=== PATIENT | male | born 1955 | race Caucasian/White ===

== ENCOUNTER 2023-11-09 09:07 | Inpatient (IN) | payer OTHER, SELFPAY ==
[2023-11-09] VITALS (22 sets, daily range): BP systolic 82–146; BP diastolic 62–88; BMI 26.9; BMI 27.5
[2023-11-09 05:15] LABS: % Basophils 0.2 % (0-2); % Eosinophils 0.4 % (0-6); % Immature Granulocytes 0.4 % (0-0.5); % Lymphocytes 5.5 % (20.5-51.1); % Monocytes 1.6 % (1.7-9.3); % Neutrophils 91.9 % (42.2-75.2); Absolute Eosinophils 0.1 10^3/uL (0-0.7); Absolute Immature Granulocytes 0.1 10^3/uL (0-0.05); Absolute Lymphocytes 0.7 10^3/uL (1.2-3.4); Absolute Monocytes 0.2 10^3/uL (0.1-0.6); Absolute Neutrophils 12.3 10^3/uL (1.4-6.5); Hematocrit 37.5 % (39.0-52.0); Hemoglobin 13.3 g/dL (13.0-18.0); Mean Corp Hgb Conc. 35.5 g/dL (33.0-37.0); Mean Corpuscular Hgb 32.5 pg (27.0-31.0); Mean Corpuscular Volume 91.7 fL (80.0-94.0); Mean Platelet Volume 8.7 fL (7.4-10.4); Nucleated Red Blood Cells % 0 % (-); Platelet Count 219 10^3/uL (130-400); Red Blood Cell Count 4.09 10^6/uL (4.70-6.10); Red Cell Dist. Width 13.4 % (11.5-14.5); White Blood Cell Count 13.4 10^3/uL (4.8-10.8)
[2023-11-09] MEDS: TYLENOL 1000 MG PO (05:17)
[2023-11-09] MEDS: ZOFRAN 4 MG IV (05:18)
[2023-11-09] MEDS: NSS 1000 IV ×2 (05:18→12:34)
[2023-11-09 05:33] LABS: COVID-19 Antigen Negative (Negative)
[2023-11-09 05:37] LABS: Lactic Acid 2.7 mmol/L (0.7-2.0)
[2023-11-09 05:48] LABS: Blood Urea Nitrogen 18 mg/dl (9-20); Calcium 9.7 mg/dl (8.4-10.2); Carbon Dioxide 24 mmol/L (22-30); Chloride 105 mmol/L (98-107); Estimated Creatinine Clearance 100 ml/min; Glucose 123 mg/dl (70-99); Sodium 140 mmol/L (135-145); eGFR > 60.00
--- NOTE | 2023-11-09 06:10 | EDRN ---
Dr. Cat at bedside going over results and plan for admission
--- NOTE | 2023-11-09 06:31 | ED.GENMED ---
History of Present Illness
General
Chief Complaint: Abdominal Symptoms
Source: patient and ambulance crew
Exam Limitations: none
Time Seen by Provider: 11/09/23 06:04
Nursing documentation reviewed up to this point in time: agreed with
Travel History
Have you had any contact with someone who has COVID-19?: No
Do you have any symptoms of coronavirus? Fever > 100 degrees, chills, cough, shortness of breath, sore throat, loss of taste or smell, muscle aches, or headache?: Yes
Symptoms:: fever
History of Present Illness
History of Present Illness:
68-year-old male with a past medical history of asthma/COPD, smoker, hypertension, chronic back pain who presents to the emergency department for evaluation of fever and chills. Patient reports that he is currently visiting from his home in [place]
to see his children who live in [place]. He says that this morning he woke up with shaking chills and high fever. He says that he had an upset stomach and had 1 episode of vomiting. He says that he noticed he was having some aching pain in the
right side of his chest. Called EMS to bring him to the hospital to be evaluated. He says he no longer feels nauseated. He received some Toradol on the way to the hospital for pain which improved his chest pain. He has not noticed any recent
diarrhea. Denies any abdominal pain. Denies any recent URI type symptoms. He has a chronic cough he has not noticed it any worse than usual. He says he has chronic shortness of breath again no worse than usual. He denies any other complaints.
He says he was in his normal state of health over the past few days prior to waking up ill this morning.
Past History
Past History
ED Past Medical History: None
ED Past Surgical History: None
Social History
Tobacco: Non-smoker
Personal:
Living: with family
Review of Systems
Review of Systems
All Other Systems: ROS reviewed and negative except as documented in HPI and ROS
Constitutional: Reports fever and chills
Respiratory: Reports cough (Chronic) and trouble breathing (Chronic)
Cardiac: Reports chest pain; Denies diaphoresis or palpitations
ABD/GI: Reports nausea and vomiting (X 1); Denies abdominal pain or diarrhea
: Denies dysuria, frequency or flank pain
Musculoskeletal: Reports back pain (Chronic); Denies neck pain
Neurological: Denies dizzy, headache, weakness or numbness
Phy Exam
Physical Exam
Physical Exam:
Vitals: Marginally hypertensive, tachycardic, tachypneic, febrile, pulse ox 89% on room air
General: Awake, alert, oriented x3; no acute distress
Head: Normocephalic, atraumatic
Eyes: Conjunctiva normal, pupils equal round and reactive to light bilaterally
Throat: Airway intact, handling secretions, mucous membranes moist
Neck: Trachea midline, supple without meningismus
Lungs: Somewhat diminished at the lung bases but no focal wheezing or rales appreciated; pulse ox 89% on room air
Heart: Tachycardia with regular rhythm, no murmurs, gallops, or rubs
Abd: Soft, non distended, nontender
Neuro: No gross deficits
Skin: no rash
Extremities: No edema in extremities, equal pulses in all extremities
Scores
Heart Failure Risk
Heart Failure Risk Score: Not Applicable
Heart Score for Chest Pain Patients
STEMI patient?: Not applicable
Withdrawal Assessment of Alcohol
Withdrawal Assessment Completed?: Not applicable
Course
Orders/Labs/Results
Orders:
Orders
11/09/23 04:59
Electrocardiogram (*1) Urgent
Reason for Study: Other
Other Reason for Exam: Possible Sepsis
Cardiac Monitoring- Treatment ONCE
IV Insert/Care/Rem.- Treatment PRN
CR Chest - 2 Views Urgent
Comment:
Reason For Exam: suspected infection
O2 Therapy [RESP] Urgent
Titrate/Wean O2 to maintain O2 sat greater than (%): 93
Special Instructions: TO MAINTAIN CONTINUOUS O2 SATS > OR = 93%
Pulse Ox/cont/shift [RESP] Urgent
Quantity: 1
Special Instructions: CONTINUOUS
11/09/23 05:01
Acetaminophen [Tylenol] 1,000 mg .ROUTE .STK-MED ONE
Ondansetron Injectable [Zofran] 4 mg .ROUTE .STK-MED ONE
11/09/23 05:04
COVID-19 Antigen Urgent
Source: Nasal Swab
Lactic Acid Q4H
Comment: ON ICE, CANCEL 2ND ORDER IF FIRST LACTIC ACID LEVEL <2
Influenza A+B Rapid Molecular Urgent
MALINDA Source: Nasal Swab
Specimen Description:
11/09/23 05:05
Basic Metabolic Panel Urgent
Complete Blood Count/With Diff Urgent
Blood Culture Q30M
MALINDA Source: Blood/Venous
Specimen Description:
Comment: FROM 2 SEPARATE SITES
Blood Culture Q30M
MALINDA Source: Blood/Venous
Specimen Description:
Comment: FROM 2 SEPARATE SITES
11/09/23 05:16
Acetaminophen [Tylenol] 1,000 mg PO NOW STA
11/09/23 05:17
0.9% Sodium Chloride 1000 ml [Nss] 1,000 ml IV BOLUS
11/09/23 05:18
Ondansetron Injectable [Zofran] 4 mg IV NOW STA
11/09/23 06:08
CefTRIAXone [Rocephin] 1,000 mg IV NOW STA
Doxycycline Hyclate [Vibramycin] 100 mg 0.9% Sodium Chloride 250 ml [Nss] 250 ml IV NOW
11/09/23 09:00
Lactic Acid Q4H
Comment: ON ICE, CANCEL 2ND ORDER IF FIRST LACTIC ACID LEVEL <2
Abnormal Lab Results
11/09/23 11/09/23
05:04 05:05
WBC 13.4 H 10^3/uL
(4.8-10.8)
RBC 4.09 L 10^6/uL
(4.70-6.10)
Hct 37.5 L %
(39.0-52.0)
MCH 32.5 H pg
(27.0-31.0)
Abs Immat Gran (auto) 0.1 H 10^3/uL
(0-0.05)
Absolute Neuts (auto) 12.3 H 10^3/uL
(1.4-6.5)
Absolute Lymphs (auto) 0.7 L 10^3/uL
(1.2-3.4)
Neutrophils % 91.9 H %
(42.2-75.2)
Lymphocytes % 5.5 L %
(20.5-51.1)
Monocytes % 1.6 L %
(1.7-9.3)
Glucose 123 H mg/dl
(70-99)
Lactic Acid 2.7 H mmol/L
(0.7-2.0)
11/09/23 05:05
11/09/23 05:05
Vital Signs
Initial and Last Documented VS:
Initial Vital Signs
Temp Pulse Resp BP Pulse Ox
39.2 C H 123 20 146/79 94
11/09/23 05:01 11/09/23 05:01 11/09/23 05:01 11/09/23 05:01 11/09/23 05:01
Last Documented Vital Signs
Temp Pulse Resp BP Pulse Ox
39.2 C H 123 20 146/79 94
11/09/23 05:01 11/09/23 05:01 11/09/23 05:01 11/09/23 05:01 11/09/23 05:01
MDM/Problems Addressed
Differential Diagnosis Includes:
Pneumonia, UTI, cholecystitis/intra-abdominal infection
MDM/Problems Addressed:
68-year-old male presents for evaluation of fever and chills, 1 episode of vomiting and some right sided chest discomfort that woke him up this morning. Feeling a bit better now but still has chills. Arrives to us tachycardic, tachypneic, febrile,
hypoxic. Placed on 2 L of oxygen with improvement in oxygenation. Placed on IV send labs including CBC CMP, lactate, blood cultures, viral swabs. Check chest x-ray and EKG. Send troponin given chest pain. Will treat with Tylenol, fluids.
Reassess after the above.
Labs reviewed: CBC shows leukocytosis to 13.4. CMP no clinically significant abnormalities. Lactate marginally elevated 2.7. Viral swabs negative. Chest x-ray reviewed by me shows right lower lobe pneumonia. Patient with multiple SIRS criteria
and requiring 2 L nasal cannula to maintain oxygen saturations; we will plan to treat with antibiotics for community-acquired pneumonia admit for continued management. Case discussed with hospitalist for admission.
Chronic conditions affecting care:
Smoker, COPD/asthma
*Radiology
Radiology exam reviewed: preliminary read by ED provider (Pneumonia)
*Pulse Oximetry
Patient hypoxic: yes
*EKG
Interpreted by ED Provider?: Yes
Heart Rate: 112
Rate: tachycardiac
Rhythm: sinus tachycardia
[place]: normal axis
Interval: normal interval
QRS Pattern: normal QRS
Ischemia: no ischemia
*Critical Care Note
Total Time (30-74mins, 75-104mins- exclusive of procedures): Not Applicable
Data Reviewed
Source: patient, records and ambulance crew
Patient Management
Discussion with other providers: Hospitalist (Discussed with hospitalist)
Escalation/DeEscalation of care consider admission/obs:
Admission indicated
ED Attending Note
-
Portions of this chart may have been created with voice recognition software.� Occasional wrong word or��sound alike� substitutions may have occurred due to the inherent limitations of voice recognition software.
Discharge Plan
Departure
Patient Disposition: Admit
Date of Disposition: 11/09/23
Time of Disposition: 06:37
Presentation/result/management discussed w/ accepting MD/DO: Hospitalist
Discharge Problem:
Pneumonia
Prescriptions:
No Action
lisinopril 20 mg Tablet
20 mg PO DAILY
bupropion HCl [Wellbutrin] 75 mg Tablet
75 mg PO DAILY
Referrals:
PRIVATE,PHYSICIAN [Family Provider] -
Interventions
Interventions:
*Risk Screen - Suicide Last Done: 11/09/23 05:01
*General Assessment Last Done: 11/09/23 05:01
*Neglect/Abuse Screening Last Done: 11/09/23 05:01
ED- Fall Risk Assessment Last Done: 11/09/23 05:38
*ED COVID-19 Vaccine History Last Done: 11/09/23 05:01
IM-Mfxjjy-Qjrxfpqvoa Assessment Last Done: 11/09/23 05:38
Discharge Date and Time
Print Language: CAMEROONIAN
[2023-11-09] MEDS: ROCEPHIN 1000 MG IV (06:55)
--- NOTE | 2023-11-09 07:00 | EDRN ---
Patient provided with a glass of water, call [facility]eles in reach.
[2023-11-09] MEDS: VIBRAMYCIN 260 MG IV ×2 (07:14→21:11)
[2023-11-09 08:04] LABS: Troponin I < 0.012 ng/ml
--- NOTE | 2023-11-09 08:23 | PHANOTE ---
Med Rec note- [place] go over his medication, patient has loose tables/capsules and a weekly pill financial planner. id drugs except no tablets in [place] with patient, and a tablet blue with making 100 on them. will call pharmacy at
0900
[2023-11-09] MEDS: NSS 500 IV ×3 (08:34→12:29)
[2023-11-09 09:15] LABS: Lactic Acid 1.6 mmol/L (0.7-2.0)
--- NOTE | 2023-11-09 09:15 | HPS.HSE ---
Family Physician
-
Family Physician: PHYSICIAN PRIVATE
Chief Complaint
-
fever/chills
History of Present Illness
HPI: 68-year-old male with past medical history of asthma/COPD, smoker, hypertension, chronic back pain; who p/w fever and chills. Patient is visiting from [place] to see his children who lives in [place]. He woke up with shaking chills and high
fever. He endorsed to R sided chest pain.
Called EMS to bring him to the hospital to be evaluated. He received Toradol on the way to the hospital for pain which improved his chest pain. His nausea resolved.
He denies to worsening chronic cough. He has chronic shortness of breath that he does not feel is worse than baseline.
He denies to any other complaints.
Medical History
Past Medical History
Past Medical History: Reports Other
Additional Past Medical History:
asthma/COPD
hypertension
chronic back pain
Past Surgical History: Reports Cholecystectomy and Other
Additional Past Surgical History:
back surgery x2
stomach hernia repair
Social History
Tobacco: Former Smoker (quit 2 months [employer] )
Alcohol: Occasional
Personal:
Living: With Family
Family History
Family History: Not pertinent
Allergies / Home Medications
Allergies reflects when Allergies were last updated in [facility].
Home Medications with original date entered in [facility]
Allergy/Medication List:
Allergies
Allergy/AdvReac Type Severity Reaction Status Date / Time
No Known Allergies Allergy Verified 11/09/23 05:13
Home Medications
Cipla 200 mg PO DAILY 11/09/23
bupropion HCl 150 mg tablet,12 hr sustained-release (Wellbutrin SR) 150 mg PO DAILY 11/09/23
carboxymethylcellulose 0.5 %-glycerin 0.9 % eye drops (Refresh Optive) 1 drp BOTH EYES DAILYPRN PRN mild pain 11/09/23
duloxetine 40 mg capsule,delayed release sprinkle 40 mg PO DAILYPRN PRN mild pain 11/09/23
lisinopril 10 mg tablet 20 mg PO DAILY 11/09/23
omeprazole 40 mg capsule,delayed release 40 mg PO DAILYPRN PRN gerd 11/09/23
Review of Systems
-
Respiratory: Reports See HPI, Cough (chronic) and Trouble Breathing (chronic)
Physical Exam
Vital Signs
Vital Signs
Temp Pulse Resp BP Pulse Ox
37.7 C 99 21 96/69 92
11/09/23 08:26 11/09/23 08:15 11/09/23 08:15 11/09/23 08:01 11/09/23 08:15
Physical Exam
General: Well Developed, Well Nourished, Comfortable, Conversant, Respiratory Distress and Appears Chronically Ill
HEENT: NormoCephalic, Moist mucous membranes, Atraumatic and Oxygen (3L NC)
Respiratory: Clear, Crackles (R base) and Non Labored Respirations; No Accessory Resp Muscle Use
Cardiac: S1/S2 and Regular Rhythm; No Murmur or Rub
GI: Soft, Non Tender, Non Distended and Normal Bowel Sounds; No Organomegaly
Rectal: Deferred by Provider
Musculoskeletal: No Clubbing, No Cyanosis and No Edema
Skin: No Rash
Neuro: Awake, Alert and Nonfocal/grossly intact
Psych: Calm and Intact Judgment/Insight
Laboratory Results
-
11/09/23 05:05
11/09/23 05:05
Laboratory Results
Lactic Acid 2.7 mmol/L (0.7-2.0) H 11/09/23 05:04
Total Bilirubin Cancelled 11/09/23 05:05
AST Cancelled 11/09/23 05:05
ALT Cancelled 11/09/23 05:05
Alkaline Phosphatase Cancelled 11/09/23 05:05
Troponin I < 0.012 ng/ml 11/09/23 05:15
Data Reviewed
-
Diagnostic Radiology: Image Personally Visualized and interpreted and Report Reviewed by me
Lab Data: Labs Reviewed by me
Impression/Plan
-
HPI: 68-year-old male with past medical history of asthma/COPD, hypertension, chronic back pain; who p/w fever and chills. Patient is visiting from [place] to see his children who lives in [place]. He woke up with shaking chills and high fever. He
endorsed to R sided chest pain.
Called EMS to bring him to the hospital to be evaluated. He received Toradol on the way to the hospital for pain which improved his chest pain. His nausea resolved.
He denies to worsening chronic cough. He has chronic shortness of breath that he does not feel is worse than baseline.
He denies to any other complaints.
CXR:
1. Airspace consolidation within the right middle lobe and right upper lobe, most suggestive of multifocal pneumonia.
2. No parapneumonic effusion.
A/P:
# Sepsis POA due to R sided CAP
# Acute hypoxic resp insufficiency
Placed on 3L NC, cont and wean as tolerated (pt not on home O2)
s/p IVF bolus 1500 ml in ED which improved BP, will order additional 1L bolus
Flu and COVID negative
Follow blood Cx, check MRSA screen, sputum Cx, urine Legionella/Strep Ag
Cont ceftriaxone and doxycycline
Mucinex
Duonebs Q6H ATC for now
Tylenol PRN for fever
# asthma/COPD
# ex-smoker
quit 2 month [employer], was smoking 1 PPD for several years
# hypertension
cont [employer] Lisinopril with hold parameter
# chronic back pain
DVT ppx: Lovenox SQ
FC
[2023-11-09] MEDS: PERCOCET 5/325 1 TABLET PO ×2 (09:57→16:51)
--- NOTE | 2023-11-09 14:30 | PTCARENOTE ---
Patient received from ER. Patient was able to stand and pivot to bed. AAO, VSS. 500mL NSS bolus finishing and then NSS @ 100mL/hr through IV. On 3L N/C, will attempt to wean as patient is normally on Room Air. Small abrasions on left lower leg,
cleaned, assessed and dressed with foams. Oriented to room. Call angeles in reach.
[2023-11-09] MEDS: DUONEB INH (15:03)
[2023-11-09] MEDS: DUONEB 3 ML INH ×2 (16:18→19:46)
[2023-11-09] MEDS: LOVENOX 40 MG SC (18:06)
[2023-11-09] MEDS: MUCINEX 1200 MG PO (20:03)
[2023-11-09] MEDS: TORADOL 15 MG IV (20:03)
--- NOTE | 2023-11-09 21:39 | PTCARENOTE ---
Received pt at change of shift. Pt was visibly in pain even after receiving Percocet at 16:51. Notified [employer]ANE OPERATOR. Toradol was ordered 1x dose and administered. Pt states he feels much better after getting the medication and appears to be more
relaxed. Pt resting in bed with call angeles in reach.
[2023-11-10] VITALS (10 sets, daily range): BP systolic 121–173; BP diastolic 65–95; PULSE 85–89; O2SAT 92–93; BMI 28.0
[2023-11-10] MEDS: NSS 1000 IV (00:35)
[2023-11-10] MEDS: PERCOCET 5/325 1 TABLET PO ×4 (02:17→20:16)
[2023-11-10 05:16] LABS: % Basophils 0.1 % (0-2); % Eosinophils 0.8 % (0-6); % Immature Granulocytes 0.4 % (0-0.5); % Lymphocytes 9.4 % (20.5-51.1); % Monocytes 3.9 % (1.7-9.3); % Neutrophils 85.4 % (42.2-75.2); Absolute Eosinophils 0.1 10^3/uL (0-0.7); Absolute Immature Granulocytes 0.1 10^3/uL (0-0.05); Absolute Lymphocytes 1.3 10^3/uL (1.2-3.4); Absolute Monocytes 0.5 10^3/uL (0.1-0.6); Absolute Neutrophils 11.7 10^3/uL (1.4-6.5); Hematocrit 29.1 % (39.0-52.0); Hemoglobin 9.5 g/dL (13.0-18.0); Mean Corp Hgb Conc. 32.6 g/dL (33.0-37.0); Mean Corpuscular Hgb 32.1 pg (27.0-31.0); Mean Corpuscular Volume 98.3 fL (80.0-94.0); Mean Platelet Volume 9.2 fL (7.4-10.4); Nucleated Red Blood Cells % 0 % (-); Platelet Count 156 10^3/uL (130-400); Red Blood Cell Count 2.96 10^6/uL (4.70-6.10); Red Cell Dist. Width 13.9 % (11.5-14.5); White Blood Cell Count 13.7 10^3/uL (4.8-10.8)
[2023-11-10] MEDS: STERILE WATER FOR INJECTION 10 ML IV (05:40)
[2023-11-10] MEDS: ROCEPHIN 1000 MG IV (05:40)
[2023-11-10 06:18] LABS: Blood Urea Nitrogen 19 mg/dl (9-20); Carbon Dioxide 25 mmol/L (22-30); Chloride 110 mmol/L (98-107); Estimated Creatinine Clearance 110 ml/min; Glucose 82 mg/dl (70-99); Potassium 3.7 mmol/L (3.5-5.1); Sodium 138 mmol/L (135-145); eGFR > 60.00
[2023-11-10] MEDS: WELLBUTRIN SR (12 hour sustained release) 150 MG PO (07:14)
[2023-11-10] MEDS: ZESTRIL 20 MG PO (07:14)
[2023-11-10] MEDS: MUCINEX 1200 MG PO ×2 (07:14→20:07)
[2023-11-10] MEDS: VIBRAMYCIN 260 MG IV ×2 (07:16→20:12)
[2023-11-10] MEDS: DUONEB 3 ML INH ×4 (07:50→20:14)
--- NOTE | 2023-11-10 08:14 | W.PN.HOSP.TC ---
Today's Communication/Plan
-
see A/P
Assessment / Plan
Assessment / Plan
HPI: 68-year-old male with past medical history of asthma/COPD, hypertension, chronic back pain; who p/w fever and chills. Patient is visiting from [place] to see his children who lives in [place]. He woke up with shaking chills and high fever. He
endorsed to R sided chest pain.
Called EMS to bring him to the hospital to be evaluated. He received Toradol on the way to the hospital for pain which improved his chest pain. His nausea resolved.
He denies to worsening chronic cough. He has chronic shortness of breath that he does not feel is worse than baseline.
He denies to any other complaints.
CXR:
1. Airspace consolidation within the right middle lobe and right upper lobe, most suggestive of multifocal pneumonia.
2. No parapneumonic effusion.
A/P:
# Sepsis POA due to R sided CAP
# Acute hypoxic resp insufficiency
Placed on 3L NC, wean O2 as tolerated (pt not on home O2)
s/p IVF bolus then maintenance IVF, with improved BP, DC further IVF
Flu and COVID negative, blood Cx so far neg, urine Legionella/Strep Ag neg,
check MRSA screen, sputum Cx
Cont ceftriaxone and doxycycline
Cont Mucinex and Duonebs Q6H ATC for now
Tylenol PRN for fever
Recc repeat CXR in 4-6 weeks with PCP
# asthma/COPD
# ex-smoker
quit 2 month [employer], was smoking 1 PPD for several years
# hypertension
cont [employer] Lisinopril with hold parameter
# chronic back pain
cont [employer] Percocet
PT OT eval
DVT ppx: Lovenox SQ
FC
Anticipated Discharge: 24 - 48 hours
Subjective/Interval History
-
Date of Service: November 10, 2023
Objective Data
-
Labs:
Laboratory Results
11/10/23
05:05
WBC 13.7 H
Hgb 9.5 L D
Hct 29.1 L
Plt Count 156 D
Sodium 138
Potassium 3.7
Chloride 110 H
Carbon Dioxide 25
BUN 19
Creatinine 0.8
Glucose 82
Calcium 8.0 L D
Vital Signs:
Vital Signs
Temp Pulse Resp BP Pulse Ox
36.6 C 79 18 135/87 97
11/10/23 04:05 11/10/23 07:51 11/10/23 07:51 11/10/23 06:00 11/09/23 20:00
I&O
11/09/23 11/10/23 11/11/23
06:59 06:59 06:59
Intake Total 2240 / 2240
Output Total 2175 / 2175
Balance 65 / 65
Review of Systems
-
All other systems: Reviewed and negative
Physical Exam
-
General: Well Developed, Well Nourished, Comfortable and Conversant
HEENT: Normocephalic, Atraumatic, Nose Appears Normal and Ears Appear Normal
Respiratory: Clear to Auscultation and Non Labored Respirations; Negative Accessory Resp Muscle Use
Cardiac: Regular Rhythm and S1/S2
GI: Soft, Nontender, Nondistended and Normal Bowel Sounds
Skin: Warm and Dry
Neuro: Awake, Alert, Oriented and AO x 3
Psych: Calm and Intact Judgement/Insight
Data Reviewed
-
Diagnostic Radiology: Image personally visualized and interpreted and Report Reviewed by me
Labs: Labs Reviewed by me
--- NOTE | 2023-11-10 09:29 | TRANSFER ---
Report given transfer to 412/1
--- NOTE | 2023-11-10 10:30 | PTCARENOTE ---
Received patient from IMU via wheelchair. AAOx3, ambulated to bed. Assessed and oriented to room. Call angeles in close reach.
[2023-11-10] MEDS: TORADOL 15 MG IV (10:45)
[2023-11-10] MEDS: LYRICA 200 MG PO ×2 (11:23→20:07)
[2023-11-10] MEDS: TYLENOL 650 MG PO (13:23)
--- NOTE | 2023-11-10 15:58 | CM ---
Patient seen at bedside. Patient confirmed that he lives with his in a 2 story home. Patient has a first floor set up and his daughter a nurse lives in the same community. Patient has no DME at home. Patient PCP is Dr. Medrano and he uses the
[facility] pharmacy [facility] in [place]. Patient was here to visit his family when he became ill and came to visit . Patient plan is for discharge home with no needs. Patient has no home O2 and currently is not using O2. Patient is
anticipating discharge home tomorrow. CM will continue to follow for discharge planning needs.
Plan; home with no needs; watch for pharmacy in area for any updated medication changes.
[2023-11-10] MEDS: LOVENOX 40 MG SC (17:41)
--- NOTE | 2023-11-11 03:06 | DOWNTIME ---
There was a [employer] Downtime on 10/14/2023 from 0100 to 10/14/2023 at 0439. Downtime documentation of patient's care, including medication administrations, has been reconciled in the electronic record per guidelines. Refer to the
patient's paper chart under the miscellaneous tab to see printed paper medication records and downtime forms.
[2023-11-11] MEDS: STERILE WATER FOR INJECTION 10 ML IV (05:29)
[2023-11-11] MEDS: ROCEPHIN 1000 MG IV (05:30)
[2023-11-11] MEDS: TYLENOL 650 MG PO (05:39)
[2023-11-11 05:50] VITALS: BP 146/88
[2023-11-11 06:13] LABS: % Basophils 0.2 % (0-2); % Eosinophils 1.1 % (0-6); % Immature Granulocytes 0.5 % (0-0.5); % Lymphocytes 8.9 % (20.5-51.1); % Monocytes 5.5 % (1.7-9.3); % Neutrophils 83.8 % (42.2-75.2); Absolute Eosinophils 0.1 10^3/uL (0-0.7); Absolute Immature Granulocytes 0.1 10^3/uL (0-0.05); Absolute Monocytes 0.6 10^3/uL (0.1-0.6); Absolute Neutrophils 9.7 10^3/uL (1.4-6.5); Hematocrit 33.5 % (39.0-52.0); Hemoglobin 11.6 g/dL (13.0-18.0); Mean Corp Hgb Conc. 34.6 g/dL (33.0-37.0); Mean Corpuscular Hgb 32.5 pg (27.0-31.0); Mean Corpuscular Volume 93.8 fL (80.0-94.0); Mean Platelet Volume 9.6 fL (7.4-10.4); Nucleated Red Blood Cells % 0 % (-); Platelet Count 177 10^3/uL (130-400); Red Blood Cell Count 3.57 10^6/uL (4.70-6.10); Red Cell Dist. Width 13.2 % (11.5-14.5); White Blood Cell Count 11.6 10^3/uL (4.8-10.8)
[2023-11-11 06:41] LABS: Blood Urea Nitrogen 12 mg/dl (9-20); Carbon Dioxide 27 mmol/L (22-30); Chloride 100 mmol/L (98-107); Estimated Creatinine Clearance 110 ml/min; Glucose 94 mg/dl (70-99); Sodium 135 mmol/L (135-145); eGFR > 60.00
[2023-11-11] MEDS: VIBRAMYCIN 260 MG IV (07:56)
[2023-11-11] MEDS: MUCINEX 1200 MG PO (07:57)
[2023-11-11] MEDS: ZESTRIL 20 MG PO (07:57)
[2023-11-11] MEDS: WELLBUTRIN SR (12 hour sustained release) 150 MG PO (07:57)
[2023-11-11] MEDS: LYRICA 200 MG PO (07:58)
[2023-11-11] MEDS: PROTONIX 40 MG PO (07:58)
[2023-11-11] MEDS: DUONEB 3 ML INH (08:19)
--- NOTE | 2023-11-11 08:49 | W.PN.HOSP.TC ---
Addendum entered and electronically signed by Angelita Espinoza MD 11/11/23 13:57:
total DC time 35 min
Original Note:
Today's Communication/Plan
-
DC home today
Assessment / Plan
Assessment / Plan
HPI: 68-year-old male with past medical history of asthma/COPD, hypertension, chronic back pain; who p/w fever and chills. Patient is visiting from [place] to see his children who lives in [place]. He woke up with shaking chills and high fever. He
endorsed to R sided chest pain.
Called EMS to bring him to the hospital to be evaluated. He received Toradol on the way to the hospital for pain which improved his chest pain. His nausea resolved.
He denies to worsening chronic cough. He has chronic shortness of breath that he does not feel is worse than baseline.
He denies to any other complaints.
CXR:
1. Airspace consolidation within the right middle lobe and right upper lobe, most suggestive of multifocal pneumonia.
2. No parapneumonic effusion.
A/P:
# Sepsis POA due to R sided CAP
# Acute hypoxic resp insufficiency, resolved
Placed on 3L NC, weaned back to RA (pt not on home O2)
s/p IVF bolus then maintenance IVF, with improved BP, DCed further IVF
Flu and COVID negative, blood Cx so neg, urine Legionella/Strep Ag neg, MRSA screen negative, sputum Cx positive for E coli
Transition ceftriaxone and doxycycline to Cefdinir and PO doxycycline for 3 more days
Cont Mucinex
Tylenol PRN for fever
Recc repeat CXR in 4-6 weeks with PCP
# asthma/COPD
# ex-smoker
quit 2 month [employer], was smoking 1 PPD for several years
# hypertension
cont [employer] Lisinopril with hold parameter
# chronic back pain
cont [employer]IL[employer] Percocet
PT OT eval recc HH
DVT ppx: Lovenox SQ
FC
DW RN
updated on the phone
Anticipated Discharge: Today
Subjective/Interval History
-
Date of Service: November 11, 2023
Objective Data
-
Labs:
Laboratory Results
11/11/23
05:38
WBC 11.6 H
Hgb 11.6 L D
Hct 33.5 L
Plt Count 177
Sodium 135
Potassium 4.0
Chloride 100
Carbon Dioxide 27
BUN 12
Creatinine 0.8
Glucose 94
Calcium 10.0 D
Vital Signs:
Vital Signs
Temp Pulse Resp BP Pulse Ox
36.8 C 76 16 135/82 95
11/10/23 23:12 11/11/23 08:38 11/11/23 08:38 11/11/23 07:57 11/11/23 08:38
I&O
11/10/23 11/11/23 11/12/23
06:59 06:59 06:59
Intake Total 2240 / 2240 2140 / 2140
Output Total 2175 / 2175 980 / 980
Balance 65 / 65 1160 / 1160
Review of Systems
-
All other systems: Reviewed and negative
Physical Exam
-
General: Well Developed, Well Nourished, Comfortable and Conversant
HEENT: Normocephalic, Atraumatic, Nose Appears Normal and Ears Appear Normal
Respiratory: Clear to Auscultation and Non Labored Respirations; Negative Accessory Resp Muscle Use
Cardiac: Regular Rhythm and S1/S2
GI: Soft, Nontender, Nondistended and Normal Bowel Sounds
Skin: Warm and Dry
Neuro: Awake, Alert, Oriented and AO x 3
Psych: Calm and Intact Judgement/Insight
Data Reviewed
-
Diagnostic Radiology: Image personally visualized and interpreted and Report Reviewed by me
Labs: Labs Reviewed by me
[2023-11-11] MEDS: PERCOCET 5/325 1 TABLET PO (09:13)
--- NOTE | 2023-11-11 10:20 | CM ---
Patient seen bedside with , discussed plan for discharge today. CM discussed PT recommendation of home health, discussed as patient lives in [place], can follow up with his PCP if interested in VN services. Patient reports he has had a lot of
therapy in the past and understands what he needs to do if he decides to set up therapy. IMM reviewed, signed, placed in chart. Patients to provide transportation home. CM will continue to follow for discharge planning needs.
Plan; home with , no needs.
--- NOTE | 2023-11-11 13:29 | W.DCSUMMARY ---
Discharge Summary
Discharge Data
Date of Admission: 11/09/23
Date of Discharge: 11/11/23
-
Pending Results: No
Hospital Course
Principal Diagnosis:
Sepsis on admission due to Right sided community-acquired pneumonia
Chronic Diagnoses:�
Asthma/chronic obstructive pulmonary disease
Ex-smoker
Essential hypertension
Chronic back pain
Consultations:�
None
Procedures:�
None
Clinical course:�
68-year-old male with past medical history as stated above who presented with fever and chills. Patient is visiting from [place] to see his children who lives in [place].
Problem 1:
Sepsis on admission due to Right sided community-acquired pneumonia.
This was associated with acute hypoxic respiratory insufficiency admission, which resolved.
He was weaned back to room air from 3 L nasal cannula on admission.
His CXR noted airspace consolidation within the right middle lobe and right upper lobe, most suggestive of multifocal pneumonia.
He received IV fluid bolus as part of the sepsis bundle (which improved his blood pressure), and was started with empiric antibiotic ceftriaxone and doxycycline.
He was discharged with cefdinir and doxycycline for 3 more days following discharge.
His Flu and COVID tests were negative. His MRSA screen was negative.
His blood culture was negative and his urine Legionella/Strep antigens were negative.
His sputum culture grew E coli that is sensitive to third-generation cephalosporin.
He can continue with Tylenol as needed for fever and mild pain.
He was recommended to follow-up with his PCP for repeat chest x-ray in 4 to 6 weeks.
As for the rest of his medical problems, they were stable during his hospital stay.
Discharge Plan
-
Patient Disposition: Home (Routine Discharge)
Discharge Diagnosis/Procedures: right middle lobe and right upper lobe community acquired pneumonia; resolved hypoxia
Condition: Good
Diet: As tolerated, Low Fat, Low Cholesterol and Low Sodium
Activity: As tolerated
Driving Restrictions: As prior to admission
Blood Work: CBC in 1 week with result to your PCP
Others Tests: repeat CXR in 4-6 weeks with your PCP
Referrals:
PRIVATE,PHYSICIAN [Family Provider] - in less than 1 week
Additional Discharge Medication Instructions: Continue and complete antibiotics Cefdinir and doxycycline for 3 more days.
Avoid dairy products (milk/cheese etc.) and sun exposure while on doxycycline.
You can continue with Mucinex for help break your mucous
Prescriptions:
New
cefdinir 300 mg capsule
300 mg PO Q12H 3 Days Qty: 6 0RF
doxycycline hyclate 100 mg capsule
100 mg PO BID 3 Days Qty: 6 0RF
guaifenesin [Mucinex] 1,200 mg tablet extended release 12hr
1,200 mg PO BID 3 Days Qty: 6 0RF
Continued
bupropion HCl [Wellbutrin SR] 150 mg Tablet Sustained-Release 12 Hr
150 mg PO DAILY
omeprazole 40 mg Capsule,Delayed Release(Dr/Ec)
40 mg PO DAILYPRN PRN (Reason: GERD )
lisinopril 10 mg Tablet
20 mg PO DAILY
pregabalin 200 mg Capsule
200 mg PO BID
Refresh Optive 0.5-0.9 % Drops
1 drp BOTH EYES DAILYPRN PRN (Reason: dry eyes )
hydrocodone-acetaminophen 5-325 mg Tablet
1 tab PO TIDPRN PRN (Reason: severe pain )
Patient Comments:
PUBLIX FILLED ON 10/17/23
fluoxetine [Prozac] 40 mg Capsule
40 mg PO DAILY
sildenafil 100 mg Tablet
100 mg PO DAILYPRN PRN (Reason: ED)
Discharge Orders:
Discharge Patient (As Directed); Ordered 11/11/23
Ordered By: Angleita Espinoza
Discharge Date and Time
Discharge Date/Time: 11/11/23 10:40
Print Language: SRI LANKAN
== END 2023-11-11 10:40 | disposition home or self-care (01) | DRG 871 ==
LOC: 4 EAST ACU 09:07
PROVIDERS: Emergency Medicine; ADMITTING PHYSICIAN Internal Medicine; EMERGENCY PHYSICIAN Emergency Medicine
DX: A41.9 Sepsis, unspecified organism (principal); J18.9 Pneumonia, unspecified organism; J44.0 Chronic obstructive pulmonary disease with (acute) lower respiratory infection; G89.29 Other chronic pain; I10 Essential (primary) hypertension; M54.9 Dorsalgia, unspecified; R09.02 Hypoxemia; R06.89 Other abnormalities of breathing; B96.20 Unspecified Escherichia coli [E. coli] as the cause of diseases classified elsewhere; Z87.891 Personal history of nicotine dependence; Z90.49 Acquired absence of other specified parts of digestive tract; Z11.52 Encounter for screening for COVID-19
CPT/HCPCS: 71046; 80048; 83605; 84484; 85025; 87040; 87070; 87071; 87186; 87205; 87449; 87502; 87811; 87899; 93005; 94640; 96361; 96365; 96375; 97163; 97167; 99285